=== PATIENT | male | born 1990 | race Caucasian/White ===

== ENCOUNTER 2017-01-29 10:55 | Emergency (ER) | payer OTHER ==
[~2017-01-29] VITALS: Ht 177.8 cm; Wt 68.0 kg
== END 2017-01-29 11:12 | disposition home or self-care (01) ==
LOC: ED 10:55
DX: Z00.8 Encounter for other general examination (principal)

== ENCOUNTER 2021-09-19 00:35 | Emergency (ER) | payer SELFPAY ==
[~2021-09-19] VITALS: Ht 177.8 cm; Wt 72.6 kg
[~2021-09-19 00:35] MED LIST: HYDROCODON-ACE1 EAC8 PO
[2021-09-19] MEDS ORDERED: OXYCODONE HCL5 MG PO (01:56)
[2021-09-19] MEDS ORDERED: AMOX TR-K CLV1 EAC1 PO (02:03)
== END 2021-09-19 02:22 | disposition home or self-care (01) ==
LOC: ED 00:35
DX: K08.89 Other specified disorders of teeth and supporting structures (principal); F17.200 Nicotine dependence, unspecified, uncomplicated
CPT/HCPCS: 99282; A9270